=== PATIENT | female | born 1975 | race Caucasian/White ===

== ENCOUNTER 2016-07-05 22:13 | Emergency (ER) | payer BC ==
[2016-07-05 16:56] LABS: BASOPHILS 1.9 %; BASOPHILS ABSOLUTE 0.14 10/3/uL (0.0-0.16); EOSINOPHILS 1.2 %; EOSINOPHILS ABSOLUTE 0.09 10/3/uL (0.0-0.53); HEMATOCRIT 34.7 % (36.0-48.0); IMMATURE GRANULOCYTES 0.5 %; IMMATURE GRANULOCYTES ABSOLUTE 0.04 10/3/uL (0.0-0.11); LYMPHOCYTES 52.8 %; LYMPHOCYTES ABSOLUTE 3.91 10/3/uL (0.67-4.30); MEAN CORPUSCULAR HEMOGLOB 21.6 pg (26.0-34.0); MEAN CORPUSCULAR VOLUME 74.9 fL (80-100); MEAN PLATELET VOLUME 10.3 fL (9.2-13.0); MONOCYTES 8.5 %; MONOCYTES ABSOLUTE 0.63 10/3/uL (0.21-1.20); NEUTROPHILS 35.1 %; NEUTROPHILS ABSOLUTE 2.59 10/3/uL (2.02-8.40); PLATELET COUNT 303 10/3/uL (150-400); RBC DISTRIBUTION WIDTH 17.7 % (12.0-16.0); RED CELL COUNT 4.63 10/6/uL (4.0-5.6); WHITE BLOOD CELLS 7.4 10/3/uL (4.5-10.5)
[2016-07-05 16:59] LABS: MANUAL DIFF NO %; MEAN CORPUS HGB CONC 28.8 g/dL (32.0-36.0)
[2016-07-05 17:03] LABS: PARTIAL THROMBO TIME 25.4 SEC (22.5-37.2); PROTIME (NOT ORD) 13.3 SEC (12.0-14.5)
[2016-07-05 17:11] LABS: A/G RATIO 1.1 (0.7-1.9); ALBUMIN 4.3 G/DL (3.5-5.0); BUN (BLOOD UREA NITROGEN) 5 MG/DL (6-23); CHLORIDE, SERUM 103 MMOL/L (96-112); CO2 (CARBON DIOXIDE) 27 MMOL/L (24-34); CREATININE 0.57 MG/DL (0.55-1.02); GFR AFRICAN AMERICAN 135 ML/MIN (>=60); GFR NON AFRICAN AMERICAN 117 ML/MIN (>=60); GLUCOSE, SERUM 109 MG/DL (60-99); POTASSIUM, SERUM 3.5 MMOL/L (3.5-5.3); SGOT(AST) 14 U/L (5-40); SGPT(ALT) 21 U/L (5-65); SODIUM, SERUM 139 MMOL/L (135-148); TOTAL BILIRUBIN 0.3 MG/DL (0-1.2); TOTAL PROTEIN 8.3 G/DL (6.0-8.5)
[2016-07-05 17:13] LABS: ALKALINE PHOSPHATASE 76 U/L (45-117); CALCIUM, SERUM 9.9 MG/DL (8.5-10.4)
[2016-07-05 17:37] LABS: ANISOCYTOSIS 1+ (5-10/OIF) (0-5/OIF); MICROCYTES 1+ (5-10/OIF) (0-5/OIF); OVALOCYTES 1+ (3-10/OIF) (0-2/OIF); PLATELET ESTIMATE ADQ (ADEQUATE); TEARDROP SHAPED RBCS OCC (0-2/OIF)
[~2016-07-05 22:13] MED LIST: LIALDA1.2 GM PO; P5 PO; PROTONIX PO
[2016-07-05 22:36] LABS: ALBUMIN 4.2 G/DL (3.5-5.0); ALKALINE PHOSPHATASE 73 U/L (45-117); DIRECT BILIRUBIN < 0.1 MG/DL (0.0-0.4); INDIRECT BILIRUBIN(NOT ORDER) 0.3 MG/DL (0.1-0.9); SGOT(AST) 15 U/L (5-40); SGPT(ALT) 19 U/L (5-65); TOTAL BILIRUBIN 0.4 MG/DL (0-1.2); TOTAL PROTEIN 8.1 G/DL (6.0-8.5)
[2016-07-05 22:36] LABS: WBC (NOT ORDERED) (RFLEX) 0 (0-5)
[2016-07-05 22:41] LABS: ASCORBIC ACID (UR NOT ORDER) NEG (NEG); BILIRUBIN, URINE NEGATIVE (NEG); ER URINALYSIS TAT 0 Hrs 07 Mins; KETONE, URINE NEGATIVE (NEG); LEUKOCYTE ESTERASE(NOT OR NEG (NEG); NITRITE (URINE) NEG (NEG)
[2016-10-13] MEDS ORDERED: PROTONIX PO (01:38)
[2016-10-13] MEDS ORDERED: SIMPONI50 MG SC (01:38)
[2016-10-18] MEDS ORDERED: ZOFRAN4 PO (14:10)
[2016-10-18] MEDS ORDERED: MESALAMINE PR (14:10)
[2016-10-18] MEDS ORDERED: LEVSINTAB PO (14:11)
[2016-10-18] MEDS ORDERED: STERAPDS12 (14:11)
[2016-10-18] MEDS ORDERED: PCET PO (14:12)
[2016-10-18] MEDS ORDERED: FLORASTOR250 MG PO (14:16)
== END 2016-07-06 01:02 | disposition home or self-care (01) ==
LOC: ER 22:13
PROVIDERS: Emergency Medicine; Nurse Practitioner
DX: K92.1 Melena (principal); K21.9 Gastro-esophageal reflux disease without esophagitis; Z88.1 Allergy status to other antibiotic agents; Z88.2 Allergy status to sulfonamides; Z91.018 Allergy to other foods; Z79.52 Long term (current) use of systemic steroids; Z79.899 Other long term (current) drug therapy
CPT/HCPCS: 36415; 74176; 80053; 80076; 81001; 83690; 84703; 85025; 85610; 85730; 86850; 86900; 86901; 93005; 96374; 99285; J1980; J2405

== ENCOUNTER 2016-07-11 14:04 | Emergency (ER) | payer BC ==
[2016-07-11 14:47] LABS: ASCORBIC ACID (UR NOT ORDER) NEG (NEG); BILIRUBIN, URINE NEGATIVE (NEG); ER URINALYSIS TAT 0 Hrs 09 Mins; KETONE, URINE NEGATIVE (NEG); LEUKOCYTE ESTERASE(NOT OR NEG (NEG); NITRITE (URINE) NEG (NEG); WBC (NOT ORDERED) (RFLEX) < 1 (0-5)
[2016-07-11 15:17] LABS: BASOPHILS 3.2 %; BASOPHILS ABSOLUTE 0.37 10/3/uL (0.0-0.16); EOSINOPHILS 0.2 %; EOSINOPHILS ABSOLUTE 0.02 10/3/uL (0.0-0.53); HEMATOCRIT 34.7 % (36.0-48.0); HEMOGLOBIN 10.3 g/dL (12.0-16.0); IMMATURE GRANULOCYTES 0.3 %; IMMATURE GRANULOCYTES ABSOLUTE 0.03 10/3/uL (0.0-0.11); LYMPHOCYTES ABSOLUTE 8.63 10/3/uL (0.67-4.30); MEAN CORPUS HGB CONC 29.7 g/dL (32.0-36.0); MEAN PLATELET VOLUME 10.3 fL (9.2-13.0); MONOCYTES 7.4 %; MONOCYTES ABSOLUTE 0.86 10/3/uL (0.21-1.20); NEUTROPHILS 14.9 %; NEUTROPHILS ABSOLUTE 1.75 10/3/uL (2.02-8.40); PLATELET COUNT 236 10/3/uL (150-400); RBC DISTRIBUTION WIDTH 17.9 % (12.0-16.0); RED CELL COUNT 4.69 10/6/uL (4.0-5.6)
[2016-07-11 15:18] LABS: MANUAL DIFF NO %; WHITE BLOOD CELLS 11.7 10/3/uL (4.5-10.5)
[2016-07-11 15:31] LABS: A/G RATIO 0.9 (0.7-1.9); ALBUMIN 3.8 G/DL (3.5-5.0); BUN (BLOOD UREA NITROGEN) 4 MG/DL (6-23); CHLORIDE, SERUM 103 MMOL/L (96-112); CO2 (CARBON DIOXIDE) 26 MMOL/L (24-34); CREATININE 0.41 MG/DL (0.55-1.02); GFR AFRICAN AMERICAN 151 ML/MIN (>=60); GFR NON AFRICAN AMERICAN 130 ML/MIN (>=60); GLOBULIN 4.3 G/DL (2.5-4.1); GLUCOSE, SERUM 94 MG/DL (60-99); SGOT(AST) 45 U/L (5-40); SGPT(ALT) 51 U/L (5-65); SODIUM, SERUM 139 MMOL/L (135-148); TOTAL BILIRUBIN 0.6 MG/DL (0-1.2); TOTAL PROTEIN 8.1 G/DL (6.0-8.5)
[2016-07-11 15:32] LABS: ALKALINE PHOSPHATASE 124 U/L (45-117); CALCIUM, SERUM 8.7 MG/DL (8.5-10.4)
[2016-07-11 16:06] LABS: BAND NEUTROPHILS 10 %; EOSINOPHILS 1 %; EOSINOPHILS ABSOLUTE (CALC) 0.12 10/3/uL (0.0-0.53); ER DIFF TAT 0 Hrs 54 Mins; LYMPHOCYTES 39 %; LYMPHOCYTES ABSOLUTE (CALC) 4.56 10/3/uL (0.67-4.30); MONOCYTES 27 %; MONOCYTES ABSOLUTE (CALC) 3.16 10/3/uL (0.21-1.20); NEUTROPHILS ABSOLUTE (CALC) 3.86 10/3/uL (2.02-8.40); SEGMENTED NEUTROPHIL (0) 23 %; TOTAL NUCLEATED CELLS 100
[2016-07-11 16:07] LABS: ANISOCYTOSIS 1+ (5-10/OIF) (0-5/OIF); PLATELET ESTIMATE ADQ (ADEQUATE)
[2016-10-13] MEDS ORDERED: SIMPONI50 MG SC (01:38)
[2016-10-13] MEDS ORDERED: PROTONIX PO (01:38)
[2016-10-18] MEDS ORDERED: MESALAMINE PR (14:10)
[2016-10-18] MEDS ORDERED: ZOFRAN4 PO (14:10)
[2016-10-18] MEDS ORDERED: LEVSINTAB PO (14:11)
[2016-10-18] MEDS ORDERED: STERAPDS12 (14:11)
[2016-10-18] MEDS ORDERED: PCET PO (14:12)
[2016-10-18] MEDS ORDERED: FLORASTOR250 MG PO (14:16)
== END 2016-07-11 16:08 | disposition home or self-care (01) ==
LOC: ER 14:04
PROVIDERS: Emergency Medicine
DX: K51.90 Ulcerative colitis, unspecified, without complications (principal); K52.9 Noninfective gastroenteritis and colitis, unspecified; Z88.0 Allergy status to penicillin; Z88.2 Allergy status to sulfonamides; Z91.018 Allergy to other foods; Z79.52 Long term (current) use of systemic steroids; Z79.899 Other long term (current) drug therapy
CPT/HCPCS: 80053; 81001; 83690; 84703; 85025; 99283; A9270-GY